=== PATIENT | female | born 1960 | race Caucasian/White ===

== ENCOUNTER → 2019-07-30 | Outpatient (CLI) | payer OTHER ==
[2019-08-03 14:06] LABS: HPV 16 Negative (Negative); HPV 18 Negative (Negative); HPV OTHER HR TYPES Negative (Negative)
== END | disposition home or self-care (01) ==
LOC: LAB 08:52 → LAB SHORT 08:52
PROVIDERS: Nurse Practitioner Family
DX: Z12.4 Encounter for screening for malignant neoplasm of cervix (principal)
CPT/HCPCS: 87624; G0123

== ENCOUNTER 2021-07-11 11:06 | Day surgery (SDC) | payer OTHER ==
[~2021-07-11] VITALS: Ht 167.6 cm; Wt 83.5 kg
[~2021-07-11 11:06] MED LIST: AMITRIPTYLINE100 M2 PO; GABA100 PO
--- NOTE | 2021-07-11 15:56 | NUR ---
07/11/21 1556 Patrizia Stephen PATIENT POSITIONED IN THE RIGHT LATERAL POSITION (LEFT SIDE UP). [id number] PADDED, POSITIONED AND SECURED. SURGEON ASSISTED WITH POSITIONING. FINAL POSITION CLEARED BY OR TEAM AND SURGEON.
--- NOTE | 2021-07-11 18:30 | NUR ---
PATIENT CAME BACK FROM PACU TODAY 07/11/21 AT 1806. POD 0 LEFT TOTAL HIP PATIENT IS ALERT AND ORIENTED X4. VS ARE WNL AND IS ON RA. PATIENT DENIES PAIN AT THIS TIME. LEFT HIP HAS TWO SITES WITH GAUZE AND FOAM TAPE. BOTH OF THESE SITES ARE C/D/I. PATIENT IS ABLE TO WIGGLE FINGERS AND TOES WITHOUT NUMBNESS/TINGLING. SHE IS TOLERATING SMALL AMOUNTS OF WATER. DAUGHTER IS AT BEDSIDE AND WILL BE PICKING HER UP IN THE MORNING. CALL LIGHT WITHIN REACH.
[2021-07-12 04:04] LABS: BASOPHILS ABSOLUTE AUTO 0.01 K/mm3 (0.00-0.23); BASOPHILS PERCENT AUTO 0 % (0-2); EOSINOPHILS PERCENT AUTO 0 % (0-6); Hematocrit 33.6 % (33.0-51.0); Hemoglobin 11.1 g/dL (11.5-16.0); IMMATURE GRAN ABSOLUTE AUTO 0.06 K/mm3 (0.00-0.10); IMMATURE GRAN PERCENT AUTO 1 % (0-1); LYMPHOCYTES ABSOLUTE AUTO 1.06 K/mm3 (0.84-5.20); LYMPHOCYTES PERCENT AUTO 8 % (21-46); MONOCYTES ABSOLUTE AUTO 0.84 K/mm3 (0.16-1.47); MONOCYTES PERCENT AUTO 6 % (4-13); Mean Corpuscular HGB 30.7 pg (26.0-34.0); Mean Corpuscular Volume 93 fL (80-100); Mean Platelet Volume 11.2 fL (9.1-12.4); NEUTROPHILS ABSOLUTE AUTO 11.26 K/mm3 (1.96-9.15); NEUTROPHILS PERCENT AUTO 85 % (41-73); Platelet Count 225 K/mm3 (150-400); RDW Coefficient Variation 12.5 % (11.7-14.2); RDW Standard Deviation 42.8 fL (35.1-46.3); Red Blood Cell Count 3.62 M/mm3 (3.80-5.20); White Blood Cell Count 13.23 K/mm3 (4.00-11.30)
[2021-07-12 04:20] LABS: Anion Gap 8 mmol/L (6-16); Blood Urea Nitrogen 14 mg/dL (8-24); Bun/Creatinine Ratio 22.8 (12.0-20.0); CO2, Blood 25 mmol/L (21-32); Calcium, Blood 8.8 mg/dL (8.5-10.1); Chloride, Blood 103 mmol/L (98-108); Creatinine, Blood 0.61 mg/dL (0.40-1.00); Glomerular Filtration Rate >60 (60-); Glucose, Blood 190 mg/dL (70-99); Magnesium, Blood 2.1 mg/dL (1.6-2.4); Potassium, Blood 4.8 mmol/L (3.5-5.5); Sodium, Blood 136 mmol/L (136-145)
--- NOTE | 2021-07-12 05:23 | NUR ---
LYING TO RIGHT SIDE FACING WINDOW. POSITIONED PER PT PREFERANCE AFTER AMBULATING TO BATHROOM AND BACK TO BED WITH STANDBY ASSIST AND GB/FWW. FOAM TAPE OVER GUAZE PRESSURE DRESSING REMAIN C/D/I. POLAR TREVOR, NICOLA'S, AND SCD'S IN PLACE. GOOD DISTAL PULSES NOTED. SL RIGHT AC PIV IS PATENT, FLUSHING WITH EASE. PAIN MANAGED PER EMAR. DENIES FURTHER NEEDS OR WANTS AT THIS TIME. SAFETY MEASURES IN PLACE. WILL CONTINUE TO MONITOR AND ADDRESS NEEDS THEY ARISE. WILL GIVE HAND OFF TO ONCOMING SHIFT USING SBAR DURING BEDSIDE REPORT.
[2021-07-12] MEDS ORDERED: Aspir 8181 MG PO (09:22)
[2021-07-12] MEDS ORDERED: OXYC5 PO (09:23)
[2021-07-12] MEDS ORDERED: PROMETHAZINE12.5 M1 PO (09:24)
--- NOTE | 2021-07-12 10:20 | NUR ---
1017 DISCHARGED TO HOME WITH DAUGHTER WHO WILL BE PATIENTS CAREGIVER ASSIST. PT REPORTS PAIN ADEQUATELY CONTROLLED. ANDRES PO FOOD AND FLUIDS. AMBULATING IN ROOM AND BACA WITH WALKER. VOIDING CLEAR YELLOW URINE. HIP DRESSINGS DRY AND INTACT
== END 2021-07-12 10:17 | disposition home or self-care (01) ==
LOC: ORSCMMR 11:06 → EDSTATUS 12:30 → PRE IP 12:30 → SURS 17:55 → ORSCMMR 07-12 10:17 → SURS 07-12 10:17
PROVIDERS: Orthopaedic Surgery
PROC: 0SRB0JA Replacement of Left Hip Joint with Synthetic Substitute, Uncemented, Open Approach (ICD-10-PCS; principal; 2021-07-11 12:30)
PROC: 8E0YXBZ Computer Assisted Procedure of Lower Extremity (ICD-10-PCS; principal; 2021-07-11 12:30)
DX: M16.12 Unilateral primary osteoarthritis, left hip (principal); I10 Essential (primary) hypertension; Z79.899 Other long term (current) drug therapy
CPT/HCPCS: 36415; 72170; 80048; 83735; 85025; 97110; 97162; 97530; A9270; C1713; C1776; J0171; J0690; J0735; J1100; J1170; J1885; J2250; J2370; J2405; J2704; J2765; J2795; J3010; J7120

== ENCOUNTER 2024-03-08 07:35 | Day surgery (SDC) | payer OTHER ==
[2024-03-08] VITALS (15 sets, daily range): BP systolic 98–143; BP diastolic 47–96
[~2024-03-08] VITALS: Ht 165.1 cm; Wt 79.5 kg
[~2024-03-08 07:35] MED LIST changes: +Aspir 8181 MG PO; +Lactated Ringer's 1,000 ML IV SCH; +OXYC5 PO; +PROMETHAZINE12.5 M1 PO
[2024-03-08] MEDS ORDERED: ROSUVASTATIN CA20 MG PO (08:03)
[2024-03-08] MEDS ORDERED: METF500C PO (08:04)
--- NOTE | 2024-03-08 08:14 | NUR ---
Ambulatory in Day Surgery History, Chart, Medications and Allergies reviewed before start of procedure. Pre-Op teaching done. Pt verbalizes understanding. Patient States Post-Procedure ride home has been arranged.
[2024-03-08] MEDS ORDERED: propofoL 40 ML IV ONE (08:39)
--- NOTE | 2024-03-08 08:50 | NUR ---
03/08/24 08Aurora Nieves HISTORY, CHART, MEDICATIONS AND ALLERGIES REVIEWED BEFORE START OF PROCEDURE. PATIENT CONFIRMS NPO STATUS AND AGREES WITH SCHEDULED PROCEDURE. 3-LEAD EKG REVIEWED WITH PHYSICIAN PRIOR TO START OF PROCEDURE. MONITOR INTACT WITH CONTINUOUS PULSE OXIMETRY,CAPNOGRAPHY, 3-LEAD EKG, INTERMITTENT BP. SUPPLEMENTAL O2 TO BE TITRATED THROUGHOUT PROCEDURE TO MAINTAIN O2 SATURATION ABOVE 90%. PATIENT DETERMINED TO BE ASA APPROPRIATE FOR PROPOFOL SEDATION PRIOR TO START OF PROCEDURE BY .
--- NOTE | 2024-03-08 09:19 | NUR ---
0915 REPORT RECEIVED FROM LILLIAN MCKEON. VSS. PT ON RA. PT [id number]&[id number]. PT ABLE TO REPOSITION SELF IN BED. PT REQUESTING PO FLUIDS AND TOLERATING THEM WELL. PT DENIES PAIN, NAUSEA OR OTHER DISCOMFORTS.
== END 2024-03-08 09:39 | disposition home or self-care (01) ==
LOC: ORSCMMR 07:35 → ORD 08:30 → ORSCMMR 09:39
PROVIDERS: Internal Medicine Gastroenterology
PROC: 0DBN8ZX Excision of Sigmoid Colon, Via Natural or Artificial Opening Endoscopic, Diagnostic (ICD-10-PCS; principal; 2024-03-08 08:30)
DX: Z12.11 Encounter for screening for malignant neoplasm of colon (principal); K63.5 Polyp of colon; K57.30 Diverticulosis of large intestine without perforation or abscess without bleeding; E11.9 Type 2 diabetes mellitus without complications; E78.00 Pure hypercholesterolemia, unspecified; Z79.899 Other long term (current) drug therapy
CPT/HCPCS: 82947; 88305; J2704; J7120

== ENCOUNTER → 2025-09-01 | Outpatient (CLI) | payer MEDICARE, OTHER ==
[~2025-09-01] MED LIST changes: +CEFP200 PO; -Lactated Ringer's 1,000 ML IV SCH; +METF500C PO; +ONDA4ODT MM; +ROSUVASTATIN CA20 MG PO
[2025-09-01 13:24] LABS: Source, Urine Clean Catch
[2025-09-01 14:19] LABS: Color, Urine Amber (P-Yellow); Glucose Qualitative, Urine Neg (Neg); Ketones, Urine Neg (Neg); Leukocyte Esterase, Urine 2+ (Neg); Protein, Urine 3+ (Neg); Specific Gravity, Urine 1.015 (1.003-1.022); Urobilinogen, Urine 4+ (Normal)
[2025-09-01 14:56] LABS: Bilirubin, Urine 3+ (Neg)
[2025-09-01 14:58] LABS: White Blood Cells, Urine TNTC /hpf (0-5)
== END ==
LOC: LAB SHORT 12:00 → LAB 12:00
PROVIDERS: Nurse Practitioner Family
DX: R30.0 Dysuria (principal)
CPT/HCPCS: 81001; 87077; 87086; 87186

== ENCOUNTER 2025-09-05 07:13 | Emergency (ER) | payer MEDICARE, OTHER ==
[~2025-09-05] VITALS: Ht 165.1 cm; Wt 81.2 kg
[~2025-09-05 07:13] MED LIST changes: -CEFP200 PO; -ONDA4ODT MM
[2025-09-05] MEDS ORDERED: Ondansetron HCl 2 MG / ML 2ML Vial IV PRN (07:30)
[2025-09-05 07:50] LABS: BASOPHILS ABSOLUTE AUTO 0.04 K/mm3 (0.00-0.23); BASOPHILS PERCENT AUTO 0 % (0-2); EOSINOPHILS ABSOLUTE AUTO 0.05 K/mm3 (0.00-0.68); EOSINOPHILS PERCENT AUTO 0 % (0-6); Hematocrit 38.5 % (33.0-51.0); Hemoglobin 13.1 g/dL (11.5-16.0); IMMATURE GRAN ABSOLUTE AUTO 0.07 K/mm3 (0.00-0.10); IMMATURE GRAN PERCENT AUTO 1 % (0-1); LYMPHOCYTES ABSOLUTE AUTO 1.07 K/mm3 (0.84-5.20); LYMPHOCYTES PERCENT AUTO 9 % (21-46); MONOCYTES ABSOLUTE AUTO 1.72 K/mm3 (0.16-1.47); MONOCYTES PERCENT AUTO 14 % (4-13); Mean Corpuscular HGB Conc 34.0 g/dL (31.5-36.5); Mean Corpuscular Volume 89 fL (80-100); NEUTROPHILS ABSOLUTE AUTO 9.24 K/mm3 (1.96-9.15); NEUTROPHILS PERCENT AUTO 76 % (41-73); NRBC ABSOLUTE 0.00 K/mm3 (0.00-0.02); NRBC Auto 0.0 /100 WBC (0.0-0.2); Platelet Count 271 K/mm3 (150-400); RDW Coefficient Variation 13.3 % (11.7-14.2); RDW Standard Deviation 43.8 fL (35.1-46.3)
[2025-09-05 08:17] LABS: Alanine Aminotransfer (ALT/SGP 66.0 U/L (12-78); Albumin, Blood 3.2 g/dL (3.4-5.0); Albumin/Globulin Ratio 0.6 (0.8-1.8); Anion Gap 12.0 mmol/L (3-11); Aspartate Aminotrans (AST/SGOT 59.0 U/L (12-37); Bilirubin, Total 0.8 mg/dL (0.1-1.0); Blood Urea Nitrogen 20.0 mg/dL (8-24); CO2, Blood 23.0 mmol/L (21-32); Calcium, Blood 9.8 mg/dL (8.5-10.1); Chloride, Blood 98.0 mmol/L (98-108); Creatinine, Blood 0.95 mg/dL (0.40-1.00); Globulin, Blood 5.3 g/dL (2.2-4.0); Glucose, Blood 115.0 mg/dL (70-99); Potassium, Blood 3.9 mmol/L (3.5-5.5); Sodium, Blood 129.0 mmol/L (136-145); Total Protein, Blood 8.5 g/dL (6.4-8.2)
[2025-09-05] MEDS ORDERED: NS 1,000 ML IV SCH (08:45)
[2025-09-05 08:57] LABS: Source, Urine Clean Catch
[2025-09-05 09:04] LABS: Bilirubin, Urine Neg (Neg); Color, Urine Yellow (P-Yellow); Glucose Qualitative, Urine Neg (Neg); Ketones, Urine 3+ (Neg); Leukocyte Esterase, Urine 3+ (Neg); Protein, Urine 3+ (Neg); Specific Gravity, Urine 1.010 (1.003-1.022); Urobilinogen, Urine NORM (Normal)
[2025-09-05 09:18] LABS: White Blood Cells, Urine 50-100 /hpf (0-5)
[2025-09-05 09:20] LABS: Influenza A, PCR NEGATIVE (NEGATIVE); Influenza B, PCR NEGATIVE (NEGATIVE); Resp Syncytial Virus, PCR NEGATIVE (NEGATIVE); SARS-Cov-2 (COVID-19) PCR, MMC NEGATIVE (NEGATIVE)
[2025-09-05] MEDS ORDERED: LIDOCAINE 2.5%/PRILOCAINE 2.5% CREAM 30 GM TUBE TOP ONE (09:55)
[2025-09-05] MEDS ORDERED: CefTRIAXone Sodium 1,000 MG in NS 100 ML IV ONE (09:55)
[2025-09-05] MEDS ORDERED: CEFP200 PO ×2 (09:56)
[2025-09-05] MEDS ORDERED: ONDA4ODT MM ×2 (09:56)
[2025-09-05 11:07] VITALS: BP 114/66
== END 2025-09-05 11:16 | disposition home or self-care (01) ==
LOC: ER 07:13
PROVIDERS: Student in an Organized Health Care Education/Training Program
DX: N12 Tubulo-interstitial nephritis, not specified as acute or chronic (principal); N30.91 Cystitis, unspecified with hematuria; E87.1 Hypo-osmolality and hyponatremia; D72.829 Elevated white blood cell count, unspecified; E78.5 Hyperlipidemia, unspecified; E11.9 Type 2 diabetes mellitus without complications; Z88.8 Allergy status to other drugs, medicaments and biological substances; Z88.6 Allergy status to analgesic agent; Z79.84 Long term (current) use of oral hypoglycemic drugs; Z79.899 Other long term (current) drug therapy
CPT/HCPCS: 74177; 80053; 81001; 83690; 85025; 87637; A9270; J0696; J2405; J7030; Q9967